=== PATIENT | female | born 1980 | race Two or more races ===

== ENCOUNTER 2020-02-16 08:30 | Day surgery (SDC) | payer OTHER ==
[2020-02-14 10:36] LABS: HEMATOCRIT 41.6 % (36.0-48.0); HEMOGLOBIN 14.3 g/dL (12-16); MCH 32.5 pg (26.0-34.0); MCHC 34.4 g/dL (31.0-37.0); MCV 94.5 fL (80.0-100.0); MEAN PLATELET VOLUME 10.1 fL (7.4-10.4); RBC 4.4 10x6/uL (4.00-5.40); RDW 11.6 % (11.5-14.5); WBC 9.1 10x3/uL (4.8-10.8)
[~2020-02-16] VITALS: Ht 157.5 cm; Wt 59.0 kg
[2020-02-16 08:52] VITALS: BP 135/69; Ht 157.5 cm; Wt 59.0 kg
[2020-02-16 08:55] LABS: HCG URINE NEGATIVE (NEGATIVE)
--- NOTE | 2020-02-16 13:32 | NUR ---
PT DC INSTRUCTIONS REVIEWED AT THIS TIME, PT AND FAMILY VERBALIZE UNDERSTANDING. PT IV REMOVED AT THIS TIME, INTACT, NO REDNESS OR SWELLING NOTED AT SITE.
--- NOTE | 2020-02-16 13:45 | NUR ---
PT LEAVING OPS AT THIS TIME VIA WC, NAD NOTED.
--- NOTE | 2020-02-17 07:30 | OP ---
PATIENT NAME: SAI GERONIMO MEDICAL RECORD: [id number] :76 LOCATION:[facility] ADMISSION DATE: SURGEON: ROBERT VILLARREAL DO DATE OF OPERATION: 02/16/2020 PROCEDURE PERFORMED: Left patella removal of hardware and revision open reduction internal fixation. PREOPERATIVE DIAGNOSIS: Painful hardware, left patella. POSTOPERATIVE DIAGNOSIS: Painful hardware, left patella. INDICATIONS: Ms. Geronimo is a 39-year-old female who fell and fractured her left patella several months ago. She had it done at another facility and I used K-wires and they were very painful to her and it appeared to be there is a small gap in the fracture, possibly nonunion. I told her that I could take the hardware out and take the wires out at least and then put 2 screws across the fracture, compressing it and they will be buried and would not be prominent. She was okay with that. She is aware of the risks including infection, bleeding, damage to nerves or vessels in the area, continued pain, loss of range of motion, even though she did not have very good range of motion to begin due to a stroke at a young age. She was aware of all the risks and signed the consent. SURGEON: Robert Villarreal DO DESCRIPTION OF PROCEDURE: The patient was taken to the operative suite, laid in supine position, given general anesthetic and 2 gram of Ancef and LMA was placed. The left lower extremity was then prepped and draped in sterile fashion. Timeout was performed and everyone was in agreement of the correct side, site, patient and procedure. I then began by exsanguinating the left lower extremity with an Esmarch and tourniquet was inflated to 350 mmHg, was up for 24 minutes. I then made an incision over the prior incision and we made careful dissection down to the hardware, removed it and then placed two 34 mm 4.0 fully threaded cannulated screws from superior to inferior and compressing the fracture site nicely. I then used a broad band suture tape and cerclaged the patella and tied at the superior pole. I then let the tourniquet down, and Vicenta Merritt, certified surgical child welfare assistant, closed with 2-0 Vicryl in inverted interrupted fashion and then put a ZipLine on these. She was then dressed with Adaptic, 4 x 4s, ABD, Webril, Navarro wrap, awakened and taken to recovery in stable condition. BLOOD LOSS: Minimal. COMPLICATIONS: None. TRANSINT:[id number] Voice Confirmation ID: [id number] DOCUMENT ID: [id number] OPERATIVE REPORT [id number] SAI GERONIMO MICHAEL D, DO at 0730 CC: [id number] DICTATION DATE: 02/16/20 1136 HAND SIZER: 02/16/20 2227 [facility] 02/16/[address] [id number]
== END 2020-02-16 13:45 | disposition home or self-care (01) ==
LOC: D.OPS 08:30
PROVIDERS: Anesthesiology; ATTEND Orthopaedic Surgery
DX: T84.84XA Pain due to internal orthopedic prosthetic devices, implants and grafts, initial encounter (principal); S82.002A Unspecified fracture of left patella, initial encounter for closed fracture; X58.XXXA Exposure to other specified factors, initial encounter